=== PATIENT | female | born 1955 | race Caucasian/White ===

== ENCOUNTER 2018-10-29 13:53 | Inpatient (IN) | payer MEDICARE, MEDICAID ==
[~2018-10-29] VITALS: Ht 154.9 cm; Wt 90.7 kg
[2018-10-29] MEDS ORDERED: PANT40TA4 PO (14:42)
[2018-10-29] MEDS ORDERED: UBID100C13 PO (14:42)
[2018-10-29] MEDS ORDERED: FENO160T PO (14:42)
[2018-10-29] MEDS ORDERED: POLY15DR40 EACHEYE (14:42)
[2018-10-29] MEDS ORDERED: IBUP-1490 PO (14:42)
[2018-10-29] MEDS ORDERED: BRIM5DRO2 EACHEYE (14:42)
[2018-10-29] MEDS ORDERED: ESCI10TA PO (14:42)
[2018-10-29] MEDS ORDERED: MULT-447 PO (14:42)
[2018-10-29] MEDS ORDERED: OLOP2.5D EACHEYE (14:42)
[2018-10-29] MEDS ORDERED: ASPI-605 PO (14:42)
[2018-10-29] MEDS ORDERED: FAMO40TA7 PO (14:43)
[2018-10-29] MEDS ORDERED: LORAZEPAM 1 MG TABLET PO ONE (16:00)
[2018-10-29] MEDS ORDERED: LORAZEPAM 1 MG TABLET ONE (16:13)
[2018-10-29 16:16] LABS: BASOPHILS # (AUTO) 0.1 /CMM (0.0-0.2); BASOPHILS % (AUTO) 0.8 % (0.0-2.0); EOSINOPHILS % (AUTO) 0.9 % (0.0-6.0); HEMATOCRIT 43 % (33-45); HEMOGLOBIN 14.7 g/dL (11.5-14.8); LYMPHOCYTES # (AUTO) 2.3 /CMM (0.8-4.8); LYMPHOCYTES % (AUTO) 15.5 % (20.0-44.0); MEAN CORPUSCULAR HGB CONC 34 g/dl (31.0-36.0); MEAN CORPUSCULAR VOLUME 84 fL (82-100); MONOCYTES # (AUTO) 0.7 /CMM (0.1-1.30); MONOCYTES % (AUTO) 4.7 % (2.0-12.0); NEUTROPHILS # (AUTO) 11.5 /CMM (1.8-8.9); NEUTROPHILS % (AUTO) 78.1 % (43.0-81.0); PLATELET COUNT (AUTO) 271 /CMM (150-450); RED BLOOD CELL COUNT(AUTO) 5.18 MIL/uL (4.0-5.2); WHITE BLOOD COUNT (AUTO) 14.7 K/uL (4.3-11.0)
[2018-10-29 16:25] LABS: CALCIUM, SERUM 9.5 mg/dL (8.5-10.1); CARBON DIOXIDE 25 mmol/L (21-32); CHLORIDE 106 mmol/L (98-107); CREATININE 0.7 mg/dL (0.6-1.3); GLUCOSE 126 mg/dL (74-106); POTASSIUM 3.4 mmol/L (3.5-5.1); SODIUM SERUM 141 mmol/L (136-145); UREA NITROGEN, BLOOD 17 mg/dL (7-18)
[2018-10-29 16:38] LABS: ALANINE AMINOTRANSFERASE 31 U/L (12-78); ALBUMIN 3.5 g/dL (3.4-5.0); ALCOHOL, BLOOD < 3 mg/dL (0-0); ALKALINE PHOSPHATASE 112 U/L (46-116); ASPARTATE AMINOTRANSFERASE 16 U/L (15-37); BILIRUBIN,DIRECT 0.1 mg/dL (0.0-0.2); BILIRUBIN,TOTAL 0.6 mg/dL (0.2-1.0); TOTAL PROTEIN, SERUM 7.4 g/dL (6.4-8.2)
[2018-10-29 16:44] LABS: ACETAMINOPHEN < 2 ug/ml (10-30); SALICYLATE < 2.8 mg/dL (2.8-20.0)
[2018-10-29] MEDS ORDERED: OLANZAPINE 5 MG/TAB.RAPDIS ONE (17:14)
[2018-10-29] MEDS ORDERED: OLANZAPINE 5 MG/TAB.RAPDIS PO ONE (17:30)
[2018-10-29 18:38] LABS: APPEARANCE,URINE Clear (CLEAR); BILIRUBIN,URINE Negative (NEGATIVE); BLOOD, URINE Negative Ery/uL (NEGATIVE); COLOR,URINE Yellow (YELLOW); KETONES,URINE Trace (NEGATIVE); LEUKOCYTE ESTERASE ,URINE Negative (NEGATIVE); NITRITE, URINE Negative (NEGATIVE); PH,URINE 5.5 (5.0-8.0); PROTEIN,URINE Negative (NEGATIVE); UGLUCOSE Negative (NEGATIVE); UROBILINOGEN,URINE 0.2 EU/dL (0.2)
[2018-10-29 18:50] LABS: BACTERIA,URINE Few /HPF (None Seen); RBC,URINE 0-2 /HPF (0-2); SQUAMOUS EPITHELIAL CELL,UR Few /HPF (None Seen); WBC,URINE 0-2 /HPF (0-3)
[2018-10-29 20:00] VITALS: BP 161/111
[2018-10-29] MEDS ORDERED: MAGNESIUM HYDROXIDE 30 ML UDC PO PRN (20:00)
[2018-10-29] MEDS ORDERED: ZOLPIDEM TARTRATE 5 MG TABLET PO PRN (20:00)
[2018-10-29] MEDS ORDERED: LORAZEPAM 0.5 MG TABLET PO PRN (20:00)
[2018-10-29] MEDS ORDERED: MAG HYDROX/AL HYDROX/SIMETH 30 ML UDC PO PRN (20:00)
[2018-10-29] MEDS ORDERED: ACETAMINOPHEN 325 MG TABLET PO PRN (20:00)
[2018-10-29] MEDS ORDERED: IBUPROFEN 600 MG TABLET PO PRN (21:00)
[2018-10-30] MEDS ORDERED: POLYVINYL ALCOHOL 15 ML BOTTLE EACHEYE PRN (02:00)
[2018-10-30] MEDS: PANTOPRAZOLE 40 MG TABLET.DR PO SCH (07:30)
[2018-10-30 08:00] VITALS: BP 146/94
[2018-10-30] MEDS: FENOFIBRATE NANOCRYS (145 MG) 145 MG TABLET PO SCH (08:47)
[2018-10-30] MEDS: ASPIRIN EC 81 MG TABLET.DR PO SCH (08:47)
[2018-10-30] MEDS: MULTIVIT W/MINERALS 1 TAB TABLET PO SCH (08:47)
[2018-10-30] MEDS: OLANZAPINE 5 MG/TAB.RAPDIS PO SCH ×3 (10:00→21:00)
[2018-10-30] MEDS: DIVALPROEX SODIUM 125 MG CAP.SPRINK PO SCH ×3 (10:00→16:29)
[2018-10-30 16:00] VITALS: BP 164/86
[2018-10-30] MEDS: FAMOTIDINE (20 MG) 20 MG TABLET PO SCH (16:29)
[2018-10-30] MEDS: OLOPATADINE HCL 0.1% OPHTH BOTTLE EACHEYE SCH (16:29)
[2018-10-30 20:00] VITALS: BP 153/91
[2018-10-31] MEDS: PANTOPRAZOLE 40 MG TABLET.DR PO SCH (07:30)
[2018-10-31] MEDS: OLOPATADINE HCL 0.1% OPHTH BOTTLE EACHEYE SCH ×2 (09:00→16:46)
[2018-10-31] MEDS: ASPIRIN EC 81 MG TABLET.DR PO SCH (09:00)
[2018-10-31] MEDS: FENOFIBRATE NANOCRYS (145 MG) 145 MG TABLET PO SCH (09:00)
[2018-10-31] MEDS: DIVALPROEX SODIUM 125 MG CAP.SPRINK PO SCH ×2 (09:00→16:46)
[2018-10-31] MEDS: OLANZAPINE 5 MG/TAB.RAPDIS PO SCH ×2 (09:00→21:00)
[2018-10-31] MEDS: MULTIVIT W/MINERALS 1 TAB TABLET PO SCH (09:00)
[2018-10-31] MEDS: TIMOLOL 0.5% SOLN OPHTH 5 ML BOTTLE EACHEYE SCH (16:46)
[2018-10-31] MEDS: FAMOTIDINE (20 MG) 20 MG TABLET PO SCH (17:21)
[2018-11-01] MEDS: PANTOPRAZOLE 40 MG TABLET.DR PO SCH (07:30)
[2018-11-01 08:00] VITALS: BP 143/98
[2018-11-01] MEDS: OLANZAPINE 5 MG/TAB.RAPDIS PO SCH ×2 (09:00→20:27)
[2018-11-01] MEDS: BRIMONIDINE TARTRATE OPHT SOLN 5 ML BOTTLE EACHEYE SCH (09:00)
[2018-11-01] MEDS: TIMOLOL 0.5% SOLN OPHTH 5 ML BOTTLE EACHEYE SCH ×2 (09:00→17:00)
[2018-11-01] MEDS: FENOFIBRATE NANOCRYS (145 MG) 145 MG TABLET PO SCH (09:00)
[2018-11-01] MEDS: MULTIVIT W/MINERALS 1 TAB TABLET PO SCH (09:00)
[2018-11-01] MEDS: OLOPATADINE HCL 0.1% OPHTH BOTTLE EACHEYE SCH ×2 (09:00→17:00)
[2018-11-01] MEDS: DIVALPROEX SODIUM 125 MG CAP.SPRINK PO SCH ×2 (09:00→17:00)
[2018-11-01] MEDS: ASPIRIN EC 81 MG TABLET.DR PO SCH (09:14)
[2018-11-01 16:00] VITALS: BP 151/86
[2018-11-01] MEDS: FAMOTIDINE (20 MG) 20 MG TABLET PO SCH (17:22)
[2018-11-01 20:13] VITALS: BP 133/77
[2018-11-02] MEDS: PANTOPRAZOLE 40 MG TABLET.DR PO SCH (07:30)
[2018-11-02 08:00] VITALS: BP 119/74
[2018-11-02] MEDS: FENOFIBRATE NANOCRYS (145 MG) 145 MG TABLET PO SCH (09:00)
[2018-11-02] MEDS: OLOPATADINE HCL 0.1% OPHTH BOTTLE EACHEYE SCH ×2 (09:00→16:31)
[2018-11-02] MEDS: TIMOLOL 0.5% SOLN OPHTH 5 ML BOTTLE EACHEYE SCH ×2 (09:00→16:31)
[2018-11-02] MEDS: BRIMONIDINE TARTRATE OPHT SOLN 5 ML BOTTLE EACHEYE SCH (09:00)
[2018-11-02] MEDS: ASPIRIN EC 81 MG TABLET.DR PO SCH (09:00)
[2018-11-02] MEDS: OLANZAPINE 5 MG/TAB.RAPDIS PO SCH (09:00)
[2018-11-02] MEDS: MULTIVIT W/MINERALS 1 TAB TABLET PO SCH (09:00)
[2018-11-02] MEDS: DIVALPROEX SODIUM 125 MG CAP.SPRINK PO SCH (09:00)
[2018-11-02] MEDS: risperiDONE-M 0.5 MG TAB.RAPDIS PO SCH ×2 (10:30→21:52)
[2018-11-02 16:00] VITALS: BP 176/79
[2018-11-02] MEDS: FAMOTIDINE (20 MG) 20 MG TABLET PO SCH (17:54)
[2018-11-02 22:30] VITALS: BP 134/82
[2018-11-03] MEDS: PANTOPRAZOLE 40 MG TABLET.DR PO SCH (07:30)
[2018-11-03] MEDS: FENOFIBRATE NANOCRYS (145 MG) 145 MG TABLET PO SCH (09:00)
[2018-11-03] MEDS: TIMOLOL 0.5% SOLN OPHTH 5 ML BOTTLE EACHEYE SCH ×2 (09:00→17:00)
[2018-11-03] MEDS: MULTIVIT W/MINERALS 1 TAB TABLET PO SCH (09:00)
[2018-11-03] MEDS: OLOPATADINE HCL 0.1% OPHTH BOTTLE EACHEYE SCH ×2 (09:00→17:00)
[2018-11-03] MEDS: ASPIRIN EC 81 MG TABLET.DR PO SCH (09:00)
[2018-11-03] MEDS: BRIMONIDINE TARTRATE OPHT SOLN 5 ML BOTTLE EACHEYE SCH (09:00)
[2018-11-03] MEDS ORDERED: risperiDONE LIQUID 1 MG/ML ML PO SCH (09:00)
[2018-11-03] MEDS: risperiDONE 1 MG TABLET PO SCH ×2 (10:00→21:00)
[2018-11-03 16:00] VITALS: BP 150/67
[2018-11-03] MEDS: FAMOTIDINE (20 MG) 20 MG TABLET PO SCH (17:29)
[2018-11-04] MEDS: PANTOPRAZOLE 40 MG TABLET.DR PO SCH (07:30)
[2018-11-04 08:00] VITALS: BP 144/82
[2018-11-04] MEDS: FENOFIBRATE NANOCRYS (145 MG) 145 MG TABLET PO SCH (09:00)
[2018-11-04] MEDS: BRIMONIDINE TARTRATE OPHT SOLN 5 ML BOTTLE EACHEYE SCH (09:00)
[2018-11-04] MEDS: ASPIRIN EC 81 MG TABLET.DR PO SCH (09:00)
[2018-11-04] MEDS: OLOPATADINE HCL 0.1% OPHTH BOTTLE EACHEYE SCH ×2 (09:00→16:12)
[2018-11-04] MEDS: MULTIVIT W/MINERALS 1 TAB TABLET PO SCH (09:00)
[2018-11-04] MEDS: risperiDONE 1 MG TABLET PO SCH ×3 (09:00→20:47)
[2018-11-04] MEDS: TIMOLOL 0.5% SOLN OPHTH 5 ML BOTTLE EACHEYE SCH ×2 (09:00→16:12)
[2018-11-04] MEDS: FAMOTIDINE (20 MG) 20 MG TABLET PO SCH (17:41)
[2018-11-04 23:00] VITALS: BP 130/76
[2018-11-05] MEDS: PANTOPRAZOLE 40 MG TABLET.DR PO SCH (07:30)
[2018-11-05 08:00] VITALS: BP 139/87
[2018-11-05] MEDS: MULTIVIT W/MINERALS 1 TAB TABLET PO SCH (08:29)
[2018-11-05] MEDS: FENOFIBRATE NANOCRYS (145 MG) 145 MG TABLET PO SCH (08:29)
[2018-11-05] MEDS: ASPIRIN EC 81 MG TABLET.DR PO SCH (08:29)
[2018-11-05] MEDS: TIMOLOL 0.5% SOLN OPHTH 5 ML BOTTLE EACHEYE SCH (08:29)
[2018-11-05] MEDS: BRIMONIDINE TARTRATE OPHT SOLN 5 ML BOTTLE EACHEYE SCH (08:29)
[2018-11-05] MEDS: OLOPATADINE HCL 0.1% OPHTH BOTTLE EACHEYE SCH (08:29)
[2018-11-05] MEDS: risperiDONE 1 MG TABLET PO SCH (08:30)
== END 2018-11-05 13:10 | disposition home or self-care (01) | DRG 885 ==
LOC: ER 13:58 → GPS 17:25
PROVIDERS: ADMIT Psychiatry & Neurology Psychiatry; ATTEND Psychiatry & Neurology Psychiatry
DX: F31.2 Bipolar disorder, current episode manic severe with psychotic features (principal); K21.9 Gastro-esophageal reflux disease without esophagitis; E78.5 Hyperlipidemia, unspecified; D72.829 Elevated white blood cell count, unspecified; E66.9 Obesity, unspecified; F29 Unspecified psychosis not due to a substance or known physiological condition; Z68.37 Body mass index [BMI] 37.0-37.9, adult; Z86.011 Personal history of benign neoplasm of the brain; Z79.82 Long term (current) use of aspirin
CPT/HCPCS: 36415; 80048-TC; 80076-TC; 80305; 81000-TC; 85025-TC; G0480

== ENCOUNTER 2019-10-27 13:43 | Inpatient (IN) | payer MEDICARE, OTHER ==
[~2019-10-27] VITALS: Ht 154.9 cm; Wt 80.3 kg
[~2019-10-27 13:43] MED LIST: ASPI-605 PO; BRIM5DRO2 EACHEYE; ESCI10TA PO; FAMO40TA7 PO; FENO160T PO; IBUP-1490 PO; MULT-447 PO; OLOP2.5D EACHEYE; PANT40TA4 PO; POLY15DR40 EACHEYE; UBID100C13 PO
--- NOTE | 2019-10-27 13:43 | NUR ---
BIB EMT FROM HER APARTMENT,PLACED ON 5150 FOR DTS,HALLUCINATING/RUNNING INTO TRAFFIC/YELLING. TO ER BED 14, HOOKED TO MONITOR, WARM BLANKET PROVIDED. AWAITING MD AWAN. PROVIDED W CALM ENVIRONMENT.
--- NOTE | 2019-10-27 14:08 | NUR ---
DR WESTFALL AT BEDSIDE
[2019-10-27] MEDS ORDERED: OLANZAPINE 10 MG VIAL IM ONE (14:39)
[2019-10-27 14:53] LABS: BASOPHILS # (AUTO) 0.1 /CMM (0.0-0.2); BASOPHILS % (AUTO) 0.4 % (0.0-2.0); EOSINOPHILS % (AUTO) 0.4 % (0.0-6.0); HEMATOCRIT 43 % (33-45); HEMOGLOBIN 14.6 g/dL (11.5-14.8); LYMPHOCYTES # (AUTO) 2.3 /CMM (0.8-4.8); LYMPHOCYTES % (AUTO) 14.8 % (20.0-44.0); MEAN CORPUSCULAR HGB CONC 34 g/dl (31.0-36.0); MEAN CORPUSCULAR VOLUME 85 fL (82-100); MONOCYTES # (AUTO) 0.5 /CMM (0.1-1.30); MONOCYTES % (AUTO) 3.3 % (2.0-12.0); NEUTROPHILS # (AUTO) 12.8 /CMM (1.8-8.9); NEUTROPHILS % (AUTO) 81.1 % (43.0-81.0); PLATELET COUNT (AUTO) 238 /CMM (150-450); RED BLOOD CELL COUNT(AUTO) 5.11 MIL/uL (4.0-5.2); WHITE BLOOD COUNT (AUTO) 15.8 K/uL (4.3-11.0)
[2019-10-27 15:04] LABS: CALCIUM, SERUM 9.8 mg/dL (8.5-10.1); CARBON DIOXIDE 28 mmol/L (21-32); CHLORIDE 104 mmol/L (98-107); CREATININE 0.7 mg/dL (0.6-1.3); GLUCOSE 159 mg/dL (74-106); SODIUM SERUM 141 mmol/L (136-145); UREA NITROGEN, BLOOD 20 mg/dL (7-18)
[2019-10-27 15:10] LABS: ACETAMINOPHEN 0 ug/ml (10-30); ALANINE AMINOTRANSFERASE 27 U/L (12-78); ALBUMIN 3.6 g/dL (3.4-5.0); ALCOHOL, BLOOD < 3 mg/dL (0-0); ALKALINE PHOSPHATASE 99 U/L (46-116); ASPARTATE AMINOTRANSFERASE 24 U/L (15-37); BILIRUBIN,DIRECT 0.1 mg/dL (0.0-0.2); BILIRUBIN,TOTAL 0.8 mg/dL (0.2-1.0); SALICYLATE 2.2 mg/dL (2.8-20.0); TOTAL PROTEIN, SERUM 7.2 g/dL (6.4-8.2)
[2019-10-27] MEDS: OLANZAPINE 10 MG VIAL IM ONE ×2 (15:29→18:20)
--- NOTE | 2019-10-27 15:31 | NUR ---
NURSING SUP GAVE GPS BED 212B.
[2019-10-27 16:05] LABS: APPEARANCE,URINE Clear (CLEAR); BILIRUBIN,URINE Negative (NEGATIVE); BLOOD, URINE Negative Ery/uL (NEGATIVE); COLOR,URINE Yellow (YELLOW); KETONES,URINE Negative (NEGATIVE); LEUKOCYTE ESTERASE ,URINE Negative (NEGATIVE); NITRITE, URINE Negative (NEGATIVE); PH,URINE 5.5 (5.0-8.0); PROTEIN,URINE Negative (NEGATIVE); UGLUCOSE Negative (NEGATIVE); UROBILINOGEN,URINE 0.2 EU/dL (0.2)
--- NOTE | 2019-10-27 17:33 | NUR ---
REPORT GIVEN TO MAICOL OF GPS
--- NOTE | 2019-10-27 18:10 | NUR ---
PATIENT UNCOOPERATIVE, WOULD LIKE TO LEAVE HOSPITAL. DOES'NT WANT TO GET TRANSFERRED TO GPS UNIT. EXPLAINED THAT SHE IS ON HOLD AND MAKING SURE THAT SHE IS SAFE BEFORE GETTING DISCHARGED. PATIENT STILL NOT COOPERATIVE.
[2019-10-27] MEDS ORDERED: MAG HYDROX/AL HYDROX/SIMETH 30 ML UDC PO PRN (18:30)
[2019-10-27] MEDS ORDERED: LORAZEPAM 0.5 MG TABLET PO PRN (18:30)
[2019-10-27] MEDS ORDERED: ZOLPIDEM TARTRATE 5 MG TABLET PO PRN (18:30)
[2019-10-27] MEDS ORDERED: ACETAMINOPHEN 325 MG TABLET PO PRN (18:30)
[2019-10-27] MEDS ORDERED: MAGNESIUM HYDROXIDE 30 ML UDC PO PRN (18:30)
[2019-10-27] MEDS ORDERED: BLOOD SUGAR DIAGNOSTIC 1 EACH STRIP IN ONE (18:30)
--- NOTE | 2019-10-27 18:31 | NUR ---
GPS ADMISSION NOTE: RECEIVED PATIENT FROM [facility] TO [facility] PATIENT ARRIVED ON THIS UNIT [id number] VIA GURNEY WITH 2 EMT ESCORT. PATIENT ADMITTED ON A 5150 HOLD FOR DTO, DTS . PER HOLD PATIENT PARANOID DELUSIONAL IS HALLUCINATING, BELIEVES PEOPLE ARE BREAKING INTO HER APARTMENT,STEALING HER BELONGINGS BREAKING THINGS,,TAMPERING WITH HER FOOD/WATER.PATIENT IS MAKING THREATS TO KILL PEOPLE AND WALKING INTO TRAFFIC AT NIGHT,YELLING AND SCREAMING. PATIENT UNABLE TO CONTRACT FOR SAFETY AT THIS TIME. UPON FACE TO FACE ASSESSMENT PATIENT HYPERVERBAL, DELUSIONAL NON COOPERATIVE,ARGUMENTATIVE PATIENT IS ALERT AND ORIENTATED X 3 ON ROOM AIR. PATIENT DENIES SUICIDE IDEATIONS AND HOMICIDAL IDEATIONS AT THIS TIME. PATIENT IS UNDER THE PSYCHIATRIC CARE OF DR. CORRY PEARCE WAS NOTIFIED WITH STANDING ORDERS AND THE MEDICAL CARE OF DR FINLEY. PATIENT BELONGINGS WERE INVENTORIED AND CHECKED FOR CONTRABAND. ALL CONTRABAND REMOVED AND STORED IN PATIENT HALLWAY LOCKER. PATIENTS RIGHTS HANDBOOK GIVEN PATIENT REFUSED TO SIGNS ALL PAPER WORK. PATIENT ORIENTATED TO ROOM, FLOOR, AND STAFF WITH ALL QUESTIONS ANSWERED. PATIENT EDUCATED ON THE USE OF THE CALL CHARLES. PATIENT BED SIDE RAILS ARE UP X 2 FOR SAFETY. PATIENT BED IS LOCKED, LOW. WILL INDORSE TO INCOMING SHIFT RN FOR COMPLETION AND CONTINUATION OF CARE.
--- NOTE | 2019-10-27 19:10 | NUR ---
GPS RN NOTES PER AM RN REPORT PATIENT'S WBC'S ARE 15.8 OF TODAY, WAS MADE AWARE BY AM RN, NO NEW ORDER. PATIENT'S URINE IS CLEAR & YELLOW. NO S/S OF UTI NOTED AT THIS TIME. WILL CONTINUE TO MONITOR THE PT. FOR ANY CHANGES.
--- NOTE | 2019-10-27 19:30 | NUR ---
GPS RN OPENING NOTES RECEIVED PATIENT STANDING IN HER ROOM, PATIENT IS EATING HER DINNER AT THIS TIME, A & O X 2, SEEMS CONFUSED, DISORGANIZED, PARANOID, REFUSED TO BE TOUCHED. ENCOURAGED THE PT. TO SIT IN HER BED TO FINISH HER MEAL BUT PT. STATED," DO NOT TELL ME WHAT TO DO, I AM [place]." AGITATED, ARGUMENTATIVE, HYPERVERBAL, REFUSES CARE, PRESSURED & GARBLED SPEECH. UNABLE TO PROVIDE PAST HISTORY DUE TO CURRENT MENTAL STATUS. DENIES SI/HI AT THIS TIME. UNABLE TO GET MEDICATION HISTORY FROM THE PATIENT DUE TO AGITATION, CONFUSION & UNCOOPERATIVE BEHAVIOR. ATTEMPTED TO CALL FAMILY, CLAY RUIZ TO GET MORE INFORMATION ABOUT THE PATIENT BUT PHONE NUMBER BELONGS TO EATING [facility] OFFICE & DUE TO PRIVACY, DID NOT LEAVE ANY VOICEMAIL AT [phone]. WILL ENDORSE TO AM RN & DRESSMAKER HELPER TO FIND CORRECT PHONE NUMBER TO REACH FAMILY. WILL REDIRECT THE PATIENT. SAFETY MEASURES MAINTAINED. WILL CONTINUE TO MONITOR Q 15 MINS. FOR SAFETY & BEHAVIOR.
[2019-10-27 20:00] VITALS: BP 143/101
[2019-10-27 20:03] VITALS: BP 143/71
[2019-10-27 20:10] VITALS: BP 143/71
[2019-10-27 20:40] VITALS: BP 139/88
--- NOTE | 2019-10-28 02:15 | NUR ---
GPS RN NOTE PATIENT WOKE UP, KEPT REPEATING THAT HER FAMILY IS CALLING FOR HER & HER OTHER FAMILY MEMBERS ARE HERE AT THIS HOSPITAL BUT DOES NOT REMEMBER WHICH FLOOR. OFFERED ATIVAN DUE TO ANXIETY & RESTLESSNESS BUT PATIENT REFUSED, STATED," I DON'T NEED IT". ALSO WHEN CHARGE NURSE ASKED THE PATIENT WHAT MEDICATIONS SHE WAS TAKING AT HOME FOR MED RECON BUT PATIENT DENIED OF TAKING ANY MEDICINES AT HOME, STATED," I DON'T TAKE ANY MEDICINE, I AM FINE." REDIRECTED PATIENT BACK TO HER BED. WILL CONTINUE TO MONITOR Q 15 MINS FOR SAFETY & BEHAVIOR.
--- NOTE | 2019-10-28 03:22 | NUR ---
GPS RN NOTE PATIENT SLEEPING INTERMITTENTLY AT THIS TIME. AFTER SHE WOKE UP, NOTED TO BE WALKING WITH STEADY GAIT THAN BEFORE AT THIS TIME. MD MADE AWARE WITH NEW ORDER TO DISCONTINUE PT AT THIS TIME. WILL ENDORSE TO AM RN TO MONITOR THE PT. CLOSELY IF PATIENT NEEDS PT. CHARGE NURSE IS AWARE.
--- NOTE | 2019-10-28 06:16 | NUR ---
REFUSED AM LABS PATIENT REFUSED AM LABS DESPITE OF RISKS & BENEFITS EXPLANATIONS. REQUESTED THE INVERFORM MACHINE OPERATOR TO RETRY TO DRAW BLOOD LATER IF PATIENT COOPERATE.
--- NOTE | 2019-10-28 06:45 | NUR ---
GPS RN NOTE PATIENT IS AWAKE, WALKING IN & OUT OF HER ROOM, TALKING TO HER FAMILY ON THE PHONE. ASKED PATIENT IF WE CAN CALL HER FAMILY OR CLAY RUIZ ( LISTED ON FACE SHEET) TO NOTIFY ABOUT HER ADMISSION AT GPS UNIT, BUT PATIENT STATED SHE ALREADY NOTIFIED HER SISTER MARIANA & DOES NOT WANT [facility] STAFF TO CALL ANYONE TO NOTIFY, SPECIALLY NOT TO CLYA RUIZ SINCE SHE HAS ISSUES GOING ON WITH CLAY. WILL ENDORSE TO BENNY SHUKLA.
--- NOTE | 2019-10-28 07:21 | NUR ---
GPS RN NOTE PATIENT'S SISTER JES (MARIANA) IS AWARE ABOUT PATIENT'S ADMISSION TO [facility], [facility]. MARIANA CALLED BACK TO TALK TO HER SISTER.
[2019-10-28 08:00] VITALS: BP 124/75
[2019-10-28] MEDS ORDERED: risperiDONE 1 MG TABLET PO SCH (11:00)
--- NOTE | 2019-10-28 11:07 | NUR ---
Initial Discharge Plan: Pt currently resides at her apartment alone located at [address] [place] [address]; ([phone]). Per pt, she would like to return to her apartment. SW will work with the pt and the MD regarding appropriate discharge planning. SW will form a safe and proper discharge plan.
[2019-10-28] MEDS: risperiDONE 1 MG TABLET PO SCH ×2 (12:56→17:00)
--- NOTE | 2019-10-28 15:32 | NUR ---
Group Note: SW encouraged pt to participate in group on 10/28/19 at 2pm discussing discharge planning. Pt appeared to be in a labile mood and appeared to be verbally aggressive. Pt began shouting at the SW and stated, "I will not participate in anything until I see all of my stuff and until someone says I can go home." SUSAN stated that she had placed on a 72 hour hold and that it has not even been 24 hours yet. SUSAN stated that she will work with her and the MD on her discharge plan but the pt walked away.
[2019-10-28 16:00] VITALS: BP 123/69
--- NOTE | 2019-10-28 17:24 | NUR ---
gps/rn pt refused risperidone scheduled for 1700. offered x3
--- NOTE | 2019-10-28 19:49 | NUR ---
GPS RN NOTES: PT REFUSED TO CHECK HER VITALS. PT STATED, "NO. NO I DONT WANT. " EXPLAINED RISKS AND BENEFITS. PT STILL REFUSED X3. CONTINUE TO MONITOR.
[2019-10-29 08:01] VITALS: BP 154/75
[2019-10-29] MEDS: risperiDONE 1 MG TABLET PO SCH ×2 (08:09→17:07)
[2019-10-29 16:00] VITALS: BP 142/77
[2019-10-29 20:25] VITALS: BP 126/88
[2019-10-30 08:00] VITALS: BP 167/87
[2019-10-30] MEDS: risperiDONE 1 MG TABLET PO SCH ×2 (08:06→18:09)
[2019-10-30 19:59] VITALS: BP 145/77
--- NOTE | 2019-10-31 07:53 | NUR ---
RN NOTE- PT W HEADACHE. TYLENOL 650 MG GIVEN
[2019-10-31 08:00] VITALS: BP 133/66
[2019-10-31] MEDS: risperiDONE 1 MG TABLET PO SCH ×2 (08:23→17:52)
[2019-10-31 16:00] VITALS: BP 121/80
[2019-10-31 20:28] VITALS: BP 145/69
--- NOTE | 2019-11-01 00:17 | NUR ---
PT RESPONDING TO INTERNAL STIMULI, UNCOOPERATIVE, UNABLE TO CONTROL BEHAVIOR, HARD TO CONTROL BEHAVIOR. REFUSED REDIRECTION. REFUSED SKIN CHECK, SLEEPING PILL AND PRN ATIVAN. WILL CONTINUE TO MONITOR.
[2019-11-01 08:00] VITALS: BP 150/72
[2019-11-01] MEDS: risperiDONE 1 MG TABLET PO SCH ×2 (08:09→17:11)
--- NOTE | 2019-11-01 14:15 | NUR ---
Fish Receiver Contact: SW called the pts manager of internal audit, April ([phone]), and informed her that the SW will let her know when the pt will be discharged back to her apartment. SW inquired about the safety of the pt living alone and the manager of internal audit stated that she has been living there on her own for a while and has not been a problem until recently.
--- NOTE | 2019-11-01 15:10 | NUR ---
Group Note: SW encouraged pt to participate in group on 11/01/19 at 2pm discussing discharge planning. Pt stated that she is aware that she will be returning home. When the SW asked the pt to go into the Activities Room and she stated that she did not want to be around all of the other patients and stated, "I do not trust them." Pt then went on to speak rapidly in Farsi and was waving her hands around and pointing at each patient that was walking by at the time. SW attempted to bring the pt back to the original group topic and stated that the pt will be discharged back to her apartment in a couple of days.
[2019-11-01 16:00] VITALS: BP 150/94
[2019-11-01 20:09] VITALS: BP 146/72
--- NOTE | 2019-11-01 21:42 | NUR ---
GPS RN NOTE PATIENT IS AWAKE, PACING IN THE HALLWAY, PARANOID, ANXIOUS. OFFERED TO GIVE ATIVAN OR AMBIEN ORDERED, PATIENT GOT MORE UPSET, REFUSED TO TAKE ANY MEDICINE & STATED, " I DO NOT TAKE ANY MEDICINE, I AM THE PSYCHIATRIST. DO NOT TELL ME WHAT TO DO. I DON'T LIKE YOU." GAVE SPACE TO THE PATIENT, SECURITY PERSON TALKED TO HER & SHE WENT BACK TO HER ROOM. CONTINUING TO MONITOR FOR BEHAVIOR & SAFETY.
--- NOTE | 2019-11-01 22:22 | NUR ---
GPS RN NOTE PATIENT IS APPLYING EXCESSIVE LOTION TO HER FEET, THEN WORE WET SOCKS, NEW DRY SOCKS GIVEN TO THE PATIENT & EXPLAINED THE RISKS ( SLIP & FALL) OF WEARING WET SOCKS, BUT PATIENT STATED," IF I FALL, IT IS MY RESPONSIBILITY, YOU DO NOT WORRY ABOUT ME & KEPT REFUSING TO WEAR CLEAN/DRY SOCKS." PATIENT WENT BACK TO BED AT THIS TIME. RESPONDING TO EXTERNAL STIMULI. CONTINUING TO MONITOR FOR SAFETY & BEHAVIOR.
[2019-11-02 08:00] VITALS: BP 150/78
[2019-11-02] MEDS: risperiDONE 1 MG TABLET PO SCH ×2 (08:06→16:15)
[2019-11-02 16:00] VITALS: BP 147/94
[2019-11-02 19:37] VITALS: BP 141/70
[2019-11-03 08:00] VITALS: BP 144/64
--- NOTE | 2019-11-03 08:00 | NUR ---
received pt. this am alert and oriented x2.cooperative,pacing halls.anxious to go home.vs stable.
--- NOTE | 2019-11-03 08:18 | NUR ---
Gift Packer Contact: SUSAN called the pts slot manager, April ([phone]), and informed her that the pt will be discharged today. SUSAN stated that she will be transported via taxi because no one is available to pick her up.
[2019-11-03] MEDS: risperiDONE 1 MG TABLET PO SCH (09:00)
--- NOTE | 2019-11-03 09:30 | NUR ---
dr. archibald calling in discharge orders.
--- NOTE | 2019-11-03 11:40 | NUR ---
made ready for dc.all papers signed.social service made arrangements for transportation home by taxi.pt. flatly refused taxi,adamant that she go home by bus. given bus pass.ambulated to lobby by fire eater with belongings.pt. denies suicidal,homicidal ideation .has all belongings.aware of risperdal rx in home packet.and when to call md or return to hospital.
--- NOTE | 2019-11-03 12:08 | NUR ---
Discharge Note: Pt was discharged to her home located at [address], [address], [place] [address]; ([phone]). Pt was transported via bus at around 12pm and was provided with a TAP card. Pt refused to be transported in a taxi because she stated that taxis are not safe. Pts mmd unit teacher, April ([phone]), was made aware. Upon discharge, the pt appeared to be in a manic mood and presented with a distressed affect. Pt appeared alert and oriented x4 (time, place, self and situation). Pt denied both suicidal and homicidal ideation as well as auditory and visual hallucinations. Pt was referred to [facility] [place] at [address] [place] [address]; ([phone]) and a referral was faxed to . also referred to the pt to [facility] located at [address], [place] [address]; .
== END 2019-11-03 11:40 | disposition home or self-care (01) | DRG 885 ==
LOC: ER 13:43 → GPS 16:30
PROVIDERS: ADMIT Psychiatry & Neurology Psychiatry
DX: F31.2 Bipolar disorder, current episode manic severe with psychotic features (principal); F23 Brief psychotic disorder; E66.9 Obesity, unspecified; E78.5 Hyperlipidemia, unspecified; K21.9 Gastro-esophageal reflux disease without esophagitis; D72.829 Elevated white blood cell count, unspecified; Z68.33 Body mass index [BMI] 33.0-33.9, adult; E23.7 Disorder of pituitary gland, unspecified
CPT/HCPCS: 36415; 80048-TC; 80076-TC; 80305; 81000-TC; 85025-TC; 87081-TC; G0480; J3490

== ENCOUNTER 2025-04-29 16:13 | Inpatient (IN) | payer MEDICARE, OTHER ==
[~2025-04-29] VITALS: Ht 162.6 cm; Wt 95.3 kg
[~2025-04-29 16:13] MED LIST changes: +ASPI-1169 PO; -ASPI-605 PO; -BRIM5DRO2 EACHEYE; +DIVA250T4 PO; +DOCU-141 PO; +DOXY100T2 PO; -ESCI10TA PO; -FAMO40TA7 PO; -FENO160T PO; -IBUP-1490 PO; +LEVO250T59 PO; +METR500T PO; -MULT-447 PO; +OLAN5TAB6 PO; -OLOP2.5D EACHEYE; +Olanzapine PO; -PANT40TA4 PO; -POLY15DR40 EACHEYE; -UBID100C13 PO
[2025-04-29 17:07] LABS: PLATELET COUNT (AUTO) 235 K/uL (150-450); RED BLOOD CELL COUNT(AUTO) 4.90 MIL/uL (4.0-5.2); RED CELL DISTRIBUTION WIDTH 13.2 % (11.5-15.0); WHITE BLOOD COUNT (AUTO) 14.5 K/uL (4.3-11.0)
[2025-04-29 17:14] LABS: CALCIUM, SERUM 9.1 mg/dL (8.5-10.1); CREATININE 0.5 mg/dL (0.6-1.3); SODIUM SERUM 141 mmol/L (136-145); UREA NITROGEN, BLOOD 10 mg/dL (7-18)
[2025-04-29 17:21] LABS: ALCOHOL, BLOOD < 3 mg/dL (0-10); ASPARTATE AMINOTRANSFERASE 38 U/L (15-37); TOTAL PROTEIN, SERUM 6.9 g/dL (6.4-8.2)
[2025-04-29 18:08] LABS: APPEARANCE,URINE CLOUDY (CLEAR); BLOOD, URINE 2+ Ery/uL (NEGATIVE); LEUKOCYTE ESTERASE ,URINE 2+ (NEGATIVE); NITRITE, URINE NEGATIVE (NEGATIVE); UGLUCOSE NEGATIVE (NEGATIVE)
[2025-04-29 18:19] LABS: ADD URINE CULTURE YES; SQUAMOUS EPITHELIAL CELL,UR Few /HPF (None Seen)
[2025-04-29 18:31] LABS: AMPHETAMINE, URINE NEGATIVE (NEGATIVE); BARBITURATE, URINE NEGATIVE (NEGATIVE); BENZODIAZEPINE, URINE NEGATIVE (NEGATIVE); CANNABINOID, URINE NEGATIVE (NEGATIVE); COCCAINE, URINE NEGATIVE (NEGATIVE); OPIATE, URINE NEGATIVE (NEGATIVE)
[2025-04-29] MEDS: SULFAMETH/TRIMETH 800/160 MG 1 UDTAB TABLET PO ONE (18:48)
[2025-04-29 19:30] VITALS: O2SAT 98
[2025-04-29] MEDS ORDERED: ZOLPIDEM TARTRATE 5 MG TABLET PO PRN ×2 (21:30)
[2025-04-29] MEDS ORDERED: MAGNESIUM HYDROXIDE 30 ML UDC PO PRN (21:30)
[2025-04-29] MEDS ORDERED: LORAZEPAM 1 MG TABLET PO PRN ×2 (21:30)
[2025-04-29] MEDS ORDERED: ACETAMINOPHEN 325 MG TABLET PO PRN (21:30)
[2025-04-29] MEDS ORDERED: MAG HYDROX/AL HYDROX/SIMETH 30 ML UDC PO PRN (21:30)
[2025-04-29] MEDS: BLOOD SUGAR DIAGNOSTIC 1 EACH STRIP IN ONE (21:57)
[2025-04-30] MEDS: PANTOPRAZOLE 40 MG TABLET.DR PO SCH (07:30)
[2025-04-30] MEDS: SULFAMETH/TRIMETH 800/160 MG 1 UDTAB TABLET PO SCH (08:51)
[2025-04-30] MEDS: DIVALPROEX SODIUM 250 MG TABLET.DR PO SCH (13:00)
[2025-05-01 08:00] VITALS: BP 121/92; TEMP 98.1; O2SAT 97
[2025-05-01] MEDS: OLANZAPINE 10 MG VIAL IM ONE (10:30)
[2025-05-02] MEDS: OLANZAPINE 10 MG VIAL IM ONE (09:17)
[2025-05-04] MEDS: OLANZAPINE 10 MG VIAL IM STA (09:37)
[2025-05-05] MEDS: HALOPERIDOL LACTATE INJ 5 MG/ML VIAL IM ONE (08:53)
[2025-05-06 15:56] VITALS: BP 113/56; TEMP 97.7; O2SAT 97
[2025-05-07 20:30] VITALS: BP 119/65; TEMP 97.8; O2SAT 97
== END 2025-05-10 15:06 | disposition home or self-care (01) | DRG 885 ==
LOC: ER 16:17 → GPS 18:44
PROVIDERS: ADMIT Psychiatry & Neurology Psychiatry; ATTEND Registered Nurse Psychiatric/Mental Health
DX: F31.2 Bipolar disorder, current episode manic severe with psychotic features (principal); N39.0 Urinary tract infection, site not specified; Z59.01 Sheltered homelessness; F29 Unspecified psychosis not due to a substance or known physiological condition; E78.5 Hyperlipidemia, unspecified; E66.9 Obesity, unspecified; F20.9 Schizophrenia, unspecified; F41.9 Anxiety disorder, unspecified; Z88.0 Allergy status to penicillin; Z20.822 Contact with and (suspected) exposure to COVID-19; B96.89 Other specified bacterial agents as the cause of diseases classified elsewhere; D72.829 Elevated white blood cell count, unspecified; E80.6 Other disorders of bilirubin metabolism; Z68.36 Body mass index [BMI] 36.0-36.9, adult; Z79.899 Other long term (current) drug therapy
CPT/HCPCS: 36415; 70450-TC; 80048-TC; 80076-TC; 81001; 85025-TC; 87081-TC; 87086-TC; 87186-TC; 97116-TC; 97530-TC; G0480; J1200; J1630; J3490